=== PATIENT | female | born 1940 | race Caucasian/White ===

== ENCOUNTER 2024-10-03 10:44 | Outpatient (AMB) | payer MEDICARE, SELFPAY ==
--- NOTE | 2024-10-03 10:57 | A.OFFPC_ITS ---
Vital Signs 10/03/24 11:12 Height 5 ft 5 in Weight 180 lb BMI 30.0 BP 144/70 H Blood Pressure Location Rt brachial Position Sitting Respiration 18 Pulse 68 Pulse Source Pulse Oximeter Temp 98.0 F Temp Source Oral Pulse Oximetry (%) 100 Oxygen Delivery Method Room Air Intake Visit Reasons: New patient visit ok per Dr. Suárez Intake Note: Pt is here today for a New patient visit. Allergies No Known Allergies Allergy (Verified 10/03/24 11:13) Tobacco use date assessed: 10/03/24 Fall risk assessment: No Falls in past year Last assessed Fall Risk: 10/03/24 Dental Screening Dental Screen Date: 10/03/24 Did you have a dental visit in the last 12 months?: Yes Did you have a dental problem in the last 6 months where you did not have access to dental care?: No Was dental information given to patient?: Patient has dentist HPI New patient visit ok per Dr. Suárez HPI Details Patient presents for new patient visit. 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 She was seen a month ago in urgent care and diagnosed with pneumonia and treated with 1 week of antibiotic. Patient is feeling better and denies any cough, PND orthopnea shortness or breath. The patient reports intermittent right upper quadrant abdominal pain after eating fried or fatty foods. She reports occasionally nausea but no vomiting change in bowel habits pain at night. [facility] Surgical History Hx of hysterectomy Family History Father Cancer Mother Diabetes Social History Household Members Other:: lives with son, Housing: House Patient Tobacco Use Status: Never used Tobacco e-Cigarette/Vaping Use: Never Used service: No Current occupational status: retired Cognitive needs: No Hearing needs: No Vision needs: Yes Questionnaire PHQ-9 Over the last 2 weeks, how often have you been bothered by any of the following problems? 1. Little interest or pleasure in doing things: not at all 2. Feeling down, depressed, or hopeless: not at all 3. Trouble falling or staying asleep, or sleeping too much: not at all 4. Feeling tired or having little energy: not at all 5. Poor appetite or overeating: not at all 6. Feeling bad about yourself - or that you are a failure or have let yourself or your family down: not at all 7. Trouble concentrating on things, such as reading the newspaper or watching television: not at all 8. Moving or speaking so slowly that other people could have noticed. Or the opposite - being so fidgety or restless that you have been moving around a lot more than usual: not at all 9. Thoughts that you would be better off or of hurting yourself in some way: not at all Total score: 0 Depression Screening Interpretation: Negative Depression Screening Done: Yes 10673 - PHQ-9 Billing: Yes Source: Developed by Drs. Francisco Delgado, Marlyn Wheeler, Alexander Araya and colleagues, with an educational jennifer from [employer]. Thrive Questionnaire Date Thrive assessed: 10/03/24 I am a: Patient What is your living situation today?: I have a steady place to live Within the past 12 months, did the food you bought not last and you didn't have the money to get more?: Never true Within the past 12 months, did you worry whether your food would run out before you got money to buy more?: Never true Do you have trouble paying for medicines?: No Do you have trouble getting transportation to medical appointments?: No Do you have trouble paying your heating and electricity bill?: No Do you have trouble taking care of your child, family member or friend?: No Do you have trouble with day-to-day activities such as bathing, preparing meals, shopping, managing finances, etc.?: No Are you currently unemployed and looking for a job?: No Are you interested in more education?: No Please select the resources that you would like help with: None THRIVE Score: 0 AUDIT C Alcohol Use Questionnaire (AUDIT-C) 1. How often do you have a drink containing alcohol?: Monthly or less 2. How many drinks containing alcohol do you have on a typical day when you are drinking?: 1 or 2 3. How often do you have six or more drinks on one occasion?: Never Total Score: 1 JULIANO-7 AMB Questionnaire JULIANO-7 Date JULIANO - 7 assessed: 10/03/24 Feeling nervous, anxious, or on edge: 0 = Not at all Not being able to stop or control worryin = Not at all Worrying too much about different things: 0 = Not at all Trouble relaxin = Not at all Being so restless that it is hard to sit still: 0 = Not at all Becoming easily annoyed or irritable: 0 = Not at all Feeling afraid as if something awful might happen: 0 = Not at all Total JULIANO-7 score (0-4 normal; 5-9 mild; 10-14 moderate; 15-21 severe): 0 Source: Developed by Drs. Francisco Delgado, Marlyn Wheeler, Alexander Araya and colleagues, with an educational jennifer from [employer]. JULIANO-7 Assessment Billing JULIANO-7 Assessment Tool: JULIANO-7 Assessment 84936 Review of Systems Const All systems reviewed & are unremarkable except as noted in HPI and below Reports no additional complaints Eyes Reports no additional complaints ENT Reports no additional complaints Card Reports no additional complaints Resp Reports no additional complaints GI Reports no additional complaints Reports no additional complaints Physical exam (Primary Care) Vital Signs: Last Vital Signs Temp 98.0 F 10/03/24 11:12 Pulse 68 10/03/24 11:12 Resp 18 10/03/24 11:12 BP 144/70 H 10/03/24 11:12 Pulse Ox 100 10/03/24 11:12 Oxygen Delivery Method Room Air 10/03/24 11:12 BMI result Body Mass Index 30.0 Tobacco/Smoking Status: Tobacco use Status Tobacco use date assessed 10/03/24 10/03/24 11:07 Patient Tobacco Use Status Never used Tobacco 10/03/24 11:27 e-Cigarette/Vaping Use Never Used 10/03/24 11:27 PHQ-9: PHQ-9 Score PHQ-9: Total score 0 10/03/24 11:28 Depression Screening Interpretation: Negative Thrive Assessment: Date of Thrive Assessment Date Thrive assessed 10/03/24 10/03/24 11:21 Const General: no acute distress HENMT Head: Yes normal to inspection Mouth: Normal oral and palatal mucosa present Throat: Yes posterior oropharynx normal Eyes General: appearance normal, both eyes and all related structures Neck Neck: Yes supple Resp Effort & Inspection: normal respiratory effort Auscultation: clear to auscultation bilaterally Cardio Rhythm: regular rhythm Heart sounds: S1 normal heart sound present and S2 normal heart sound present GI Inspection: Yes normal to inspection Palpation (GI): Soft to palpation Percussion: Yes normal to percussion Auscultation: normal bowel sounds Immunizations pneumoc 20-esther conj-dip cr(PF) 0.5 mL IM syringe Performing Provider: Kia Suárez MD Performing Location: [facility] [place] [facility] Administered by: BISMARK Griffin on 10/03/24 11:51 Dose Route Admin Location Dispensed Lot Number Expiration Date NDC [place] [employer] 0.5 mL IM Right Deltoid 0.5 mL [id number] 08/30/25 3729-5079-43 [employer] VIS Given Date VIS Provided VIS Publication Date 10/03/24 Single Vaccine 21 Eligibility Eligibility Date Funding Source Not [facility] Eligible 10/03/24 Private Coding Level of Care Code New Pt Level 4 (20758) Diagnoses Hyperlipidemia E78.5 HTN (hypertension) I10 RUQ abdominal pain R10.11 Cataract H26.9 Additional Codes JULIANO-7 Assessment Billing - JULIANO-7 Assessment Tool: JULIANO-7 Assessment 13052 ([id number]) PHQ-9 - 48301 - PHQ-9 Billing: Yes ([id number]) Assessment & Plan Assessment & Plan (1) Hyperlipidemia: Code(s): E78.5 - Hyperlipidemia, unspecified Category: Medical Plan: Continue statin return for fasting blood work (2) HTN (hypertension): Code(s): I10 - Essential (primary) hypertension Category: Medical Plan: Increase enalapril to 20 mg a day continue atenolol. Patient will return for fasting blood work in 1 week and follow-up in 1 month (3) RUQ abdominal pain: Code(s): R10.11 - Right upper quadrant pain Category: Medical Plan: Obtain abdominal ultrasound to rule out cholelithiasis (4) Cataract: Code(s): H26.9 - Unspecified cataract Category: Medical Plan: Established with Ophthalmology Orders: Orders Comprehensive Met. Panel 1 Week E78.5 - Hyperlipidemia, unspecified, I10 - Essential (primary) hypertension, R10.11 - Right upper quadrant pain Lipid Panel 1 Week E78.5 - Hyperlipidemia, unspecified, I10 - Essential (primary) hypertension, R10.11 - Right upper quadrant pain Hemoglobin A1c 1 Week E78.5 - Hyperlipidemia, unspecified, I10 - Essential (primary) hypertension, R10.11 - Right upper quadrant pain Complete Blood Count Auto Diff 1 Week E78.5 - Hyperlipidemia, unspecified, I10 - Essential (primary) hypertension, R10.11 - Right upper quadrant pain TSH reflex Free T4 1 Week E78.5 - Hyperlipidemia, unspecified, I10 - Essential (primary) hypertension, R10.11 - Right upper quadrant pain Vitamin D 25-OH Total 1 Week E55.9 - Vitamin D deficiency, unspecified Pneumococcal 20 Immunization Today Z23 - Encounter for immunization B Type Natriuretic Peptide 1 Week E78.5 - Hyperlipidemia, unspecified, I10 - Essential (primary) hypertension, R10.11 - Right upper quadrant pain Referrals Ophthalmology Referral H26.9 - Unspecified cataract Medications: New enalapril maleate 20 mg PO DAILY 90 tabs 0RF atorvastatin 20 mg PO DAILY 90 tabs 3RF atenolol 25 mg PO DAILY 90 tabs 3RF
[2024-10-03 11:12] VITALS: BP 144/70; PULSE 68; RESP 18; TEMP 36.7; O2SAT 100
--- OUTSIDE RECORDS SUMMARY | 2024-10-03 11:54 | XMS_ITS | Continuity of Care Document ---
Author Organization [facility] [address] [place] [address] Phone [phone] Care Team Providers Care Global Account Manager Name Role Phone Moe Crow Care Team Information Receive r [phone] Problems Active Problems Provider Date Essential hypertension Darryl Gonzalez M.D. Ons et: 05/24/2022 Sciatica Darryl Gonzalez M.D. Onset: Restless legs Darryl Gonzalez M.D. Onset: Hypercholesterolemia Darryl Gonzalez M.D. Onset : 05/24/2022 Multinodular goiter Darryl Gonzalez M.D. Onset: 05/24/2022 Social History Type Date Description Comments Sex Unknown Lives With Son ETOH Use Occasionally consumes alcoho l Tobacco Use Start: Unknown Patient has never smoked Smoking Status Reviewed: 02/07/23 Patient has never sm oked Allergies and adverse reactions Description No Known Drug Allergies Medications Active Medications SIG Qnty Indications Order ing Provider Date Nvegjuzg68nt Tablets Take 1 Tablet By Mouth Every Day as Directed 90tabs Audrey Felix M.D. 05/24/2022 Estradiol0.1mg/GM Cream Use Vaginally 3 Times Per Week 42.5gm Audrey Felix M.D. 05/24/2022 Ropinirole HCL1mg Tablets Take 1 Tablet By Mouth 3 Hours Before Bedtime rehan Felix M.D. 03/10/2022 Atorvastatin Ovzrnrc21vj Tablets Take 1 Tab By Mouth Daily 90nando Felix M.D. Enalapril Gxtfafo00bc Tablets Take 1 Tablet By Mouth Every Day 90tabs Audrey Felix M.D. Vital Signs Date Vital Result Comment 06/16/2023 10:01am BP Systolic 122 mmHg BP Diastolic 60 mmHg Heart Rate 61 /min Height 63 inches 5'3 Weight 173.12 lb BMI (Body Mass Index) 30.7 kg/m2 Results Test Acquired Date Facility Test Result H/L Range Note Comprehensive Metabolic Panl 06/07/2023 [facility] Glucose 105 mg/dL High (70-99) BUN 17 mg/dL (8-23) Creatinine 0.8 mg/dL (0.5-1.0 ) Sodium 140 mmol/L (133-145 ) Potassium 4.1 mmol/L (3.6-5.2 ) Chloride 104 mmol/L (98-107) Bicarbonate 28 mmol/L (22-29) Anion Gap 8 (4-17) Albumin 4.3 GM/DL (3.4-4.8 ) Calcium 9.4 mg/dL (8.6-10. 5) Bilirubin,Total 1.0 mg/dL (0-1.2 ) Total Protein 6.8 GM/DL (6.2-8.2 ) Ag Ratio 1.7 Ast 18 U/L (0-32) Alk Phos 81 U/L (35-104) Alt 17 U/L (0-33) Estimated GFR Creatinine 75 ML/MIN/1. 73M2 1 Lipid Panel 06/07/2023 [facility] Cholesterol, Total 171 mg/dL (<200) Triglyceride 110 mg/dL (<150) HDL Chol 53 mg/dL (>39) LDL Cholesterol , Calculated 96 mg/dL (0-130) Non HDL Cholesterol (Calc) 118 mg/dL (<160) Complete Abc With Diff 06/07/2023 [facility] WBC 5.9 K/MM3 (4.0-11. 0) RBC 3.96 M/MM3 Low (4.20-5. 40) HGB 11.7 GM/DL (11.7-15 .5) HCT 36.7 % (35.7-45 .8) MCV 92.7 FL (80.0-10 0.0) MCH 29.5 pg (27.0-34 .0) MCHC 31.9 g/dL Low (33.0-37 .0) PLT 232 K/MM3 (150-460 ) RDW-SD 47.1 FL High (<47.0) MPV 10.1 FL (9.4-12. 4) Automated NRBC 0.0 #/100WBC' S Abs. NRBC 0.0 K/MM3 Neut # 3.1 K/MM3 (1.3-7.0 ) Lymph # 2.1 K/MM3 (0.8-3.1 ) [place]# 0.4 K/MM3 (0.4-0.9 ) Eo # 0.3 K/MM3 (0.0-0.4 ) Baso # 0.1 K/MM3 (0.0-0.1 ) Abs. Imm Gran 0.0 K/MM3 Neut 51.8 % (44-76) Lymph 35.9 % (15-43) Monocyte 6.4 % (4.5-10. 5) Eo 4.2 % (0-6) Baso 1.4 % (0-2) Imm Gran 0.3 % Lipid Panel 05/31/2022 [facility] Cholesterol, Total 159 mg/dL (<200) Triglyceride 108 mg/dL (<150) HDL Chol 53 mg/dL (>39) LDL Cholesterol , Calculated 84 mg/dL (0-130) Non HDL Cholesterol (Calc) 106 mg/dL (<160) Lipid Panel 02/02/2022 [facility] Cholesterol, Total 254 mg/dL High (<200) Triglyceride 155 mg/dL High (<150) HDL Chol 49 mg/dL (>39) LDL Cholesterol , Calculated 174 mg/dL High (0-130) Non HDL Cholesterol (Calc) 205 mg/dL High (<160) 1 Creatinine based est imated glomerular filtration (eGFR) in adults is calculated using the [employer] recommended 2020 CKD-EPI equation. Estimates GFR from serum creatinine, age and sex. Medical Devices Description No Information Available Encounters Type Date Location Provider Dx Diagnosis Office Visit 06/16/2023 10:00a Main Office Darryl Gonzalez M.D. G25.81 Restless legs syndrome E78.00 Pure hypercholestero lemia, unspecified I10 Essential (primary) hypertension Assessments Date Code Description Provider 06/16/2023 G25.81 Restless legs syndrome Darryl Gonzalez M.D. 06/16/2023 E78.00 Hypercholesterolemia Darryl keenan M.D. 06/16/2023 I10 Essential hypertension Darryl Gonzalez M.D. Plan of Treatment No Information Available Functional Status Description No Information Available Mental Status Description No Information Available Referrals Refer to Dr Reason for Referral Status Appt Kamron e Rafiq Schwartz MD CATARACTS FOLLOW UP Closed [address] [place] [address] [phone] Rafiq Schwartz MD Closed [address] [place] [address] [phone]
== END 2024-10-03 11:54 | disposition home or self-care (01) ==
LOC: HO.HMCC 10:45
PROVIDERS: Visit Provider Internal Medicine
DX: E78.5 Hyperlipidemia, unspecified (principal); I10 Essential (primary) hypertension; R10.11 Right upper quadrant pain; H26.9 Unspecified cataract; Z23 Encounter for immunization

== ENCOUNTER → 2024-10-03 10:44 | Outpatient (BNVA) | payer MEDICARE, SELFPAY | PROVIDERS: Visit Provider Internal Medicine | DX: I10 Essential (primary) hypertension (principal); E78.5 Hyperlipidemia, unspecified; R10.11 Right upper quadrant pain; H26.9 Unspecified cataract; Z23 Encounter for immunization; Z86.73 Personal history of transient ischemic attack (TIA), and cerebral infarction without residual deficits | CPT/HCPCS: 90471; 90677; 96127; 99202 ==

== ENCOUNTER 2024-10-28 09:42 | Outpatient (REF) | payer MEDICARE, SELFPAY ==
--- OUTSIDE RECORDS SUMMARY | 2024-10-28 10:56 | XMS_ITS | Continuity of Care Document ---
Author Organization [facility] [address] [place] [address] Phone [phone] Care Team Providers Care Advertising Sales Consultant Name Role Phone Moe Crow Care Team Information Receive r [phone] Problems Active Problems Provider Date Essential hypertension [...] SIG Qnty Indications Order ing Provider Date Etkzjfkn56ko Tablets Take 1 Tablet By Mouth Every Day as Directed 90tabs Audrey Felix M.D. 05/24/2022 Estradiol0.1mg/GM Cream Use Vaginally 3 Times Per Week 42.5gm Audrey Felix M.D. 05/24/2022 Ropinirole HCL1mg Tablets Take 1 Tablet By Mouth 3 Hours Before Bedtime rehan Felix M.D. 03/10/2022 Atorvastatin Hqfmmgm26fj Tablets Take 1 Tab By Mouth Daily 90nando Felix M.D. Enalapril Rxcwxon22bh Tablets Take 1 Tablet By Mouth Every Day 90tabs Audrey Felix M.D. Vital Signs Date Vital Result Comment 06/16/2023 10:01am BP Systolic 122 mmHg BP Diastolic 60 mmHg Heart Rate 61 /min Height 63 inches 5'3 Weight 173.12 lb BMI (Body Mass Index) 30.7 kg/m2 Results Test Acquired Date Facility Test Result H/L Range Note Comprehensive Metabolic Panl 06/07/2023 [facility] Glucose 105 mg/dL High (70-99) [...] 75 ML/MIN/1. 73M2 1 Lipid Panel 06/07/2023 [facility] Cholesterol, Total 171 mg/dL (<200) Triglyceride 110 mg/dL (<150) HDL Chol 53 mg/dL (>39) LDL Cholesterol , Calculated 96 mg/dL (0-130) Non HDL Cholesterol (Calc) 118 mg/dL (<160) Complete Abc With Diff 06/07/2023 [facility] WBC 5.9 K/MM3 (4.0-11. 0) [...] ) Lymph # 2.1 K/MM3 (0.8-3.1 ) [place]# 0.4 K/MM3 (0.4-0.9 ) Eo # 0.3 K/MM3 (0.0-0.4 ) Baso # 0.1 K/MM3 (0.0-0.1 ) Abs. Imm Gran 0.0 K/MM3 Neut 51.8 % (44-76) Lymph 35.9 % (15-43) Monocyte 6.4 % (4.5-10. 5) Eo 4.2 % (0-6) Baso 1.4 % (0-2) Imm Gran 0.3 % Lipid Panel 05/31/2022 [facility] Cholesterol, Total 159 mg/dL (<200) Triglyceride 108 mg/dL (<150) HDL Chol 53 mg/dL (>39) LDL Cholesterol , Calculated 84 mg/dL (0-130) Non HDL Cholesterol (Calc) 106 mg/dL (<160) Lipid Panel 02/02/2022 [facility] Cholesterol, Total 254 mg/dL High [...] UP Closed [address] [place] [address] [phone] Rafiq Schwartz MD Closed [address] [place] [address] [phone]
[2024-10-28 13:03] LABS: MANUAL DIFF FLAG NO
[2024-10-28 13:23] LABS: Basophils Absolute Auto 0.1 X10*3/uL (0.0-0.2); Basophils Percent Auto 1.1 % (0-2); Eosinophils Absolute Auto 0.3 X10*3/uL (0.0-0.4); Eosinophils Percent Auto 4.1 % (0-4); Hematocrit 34.5 % (37.0-47.0); Hemoglobin 11.3 g/dl (12.0-16.0); Imm Gran Abs Auto 0.03 X10*3/uL (0.00-0.03); Imm Gran Pct Auto 0.4 % (0.0-0.4); Lymphocytes Absolute Auto 2.2 X10*3/uL (1.2-4.9); Lymphocytes Percent Auto 31.4 % (20-40); Mean Corpuscular HGB Conc 32.8 g/dl (31.0-35.0); Mean Corpuscular Hemoglobin 30.1 pg (27.0-33.0); Mean Platelet Volume 10.4 fL (9.4-12.3); Monocytes Absolute Auto 0.4 X10*3/uL (0.1-1.2); Platelet Count 209 X10*3/uL (160-400); Red Blood Count 3.75 X10*6/uL (4.20-5.50); Red Cell Distribution Width 14.3 % (11.0-16.0)
[2024-10-28 13:24] LABS: B Type Natriuretic Peptide 79 pg/mL (<100)
[2024-10-28 13:32] LABS: Estimated Average Glucose 117 mg/dL; Hemoglobin A1C 114.9123 umol/L; Hemoglobin A1c % 5.7 % (<6.0); Total Hemoglobin (HGBA1C) 2995.5444 umol/L
[2024-10-28 13:38] LABS: Alanine Aminotransferase 22 U/L (0-31); Albumin Level 3.9 g/dL (3.5-5.0); Alkaline Phosphatase 73 U/L (39-117); Anion Gap 10 (12-20); Aspartate Amino Transferase 27 U/L (5-31); Blood Urea Nitrogen 18 mg/dL (9-16); Calcium 9.1 mg/dL (8.4-10.2); Carbon Dioxide 28 mmol/L (22-29); Chloride 107 mmol/L (96-108); Cholesterol 148 mg/dL (<200); Estimated Glomerular Filt Rate > 60; Glucose Random 98 mg/dL (60-115); HDL Cholesterol 49 mg/dL (>40); LDL Cholesterol Calculated 79 mg/dL (<100); Potassium 4.6 mmol/L (3.3-5.1); Sodium 140 mmol/L (135-145); Total Protein 6.9 g/dL (6.5-8.0); Triglycerides 102 mg/dL (<150)
[2024-10-28 13:45] LABS: Vitamin D 25-OH Total 32.8 ng/mL (>30)
== END 2024-10-28 09:43 | disposition home or self-care (01) ==
LOC: HO.HMGCLDS 09:42
PROVIDERS: PCP Internal Medicine; Visit Provider Internal Medicine
DX: E78.5 Hyperlipidemia, unspecified (principal); I10 Essential (primary) hypertension; R10.11 Right upper quadrant pain; E55.9 Vitamin D deficiency, unspecified
CPT/HCPCS: 36415; 80053; 80061; 82306; 83036; 83880; 84443; 85025

== ENCOUNTER 2024-11-04 09:51 | Outpatient (AMB) | payer MEDICARE, SELFPAY ==
[2024-11-04 10:13] VITALS: BP 126/76; PULSE 65; RESP 18; O2SAT 97; BMI 29.6
--- NOTE | 2024-11-04 10:13 | A.OFFPC_ITS ---
Vital Signs 11/04/24 10:13 Height 5 ft 5 in Weight 178 lb BMI 29.6 BP 126/76 Blood Pressure Location Lt brachial Position Sitting Respiration 18 Pulse 65 Pulse Source Pulse Oximeter Pulse Oximetry (%) 97 Oxygen Delivery Method Room Air Intake Visit Reasons: 1m follow up Intake Note: Pt is here today for 1 month follow up visit. Allergies No Known Allergies Allergy (Verified 11/04/24 10:15) Medication List - Last Reconciled 11/04/24 by Kia Suárez MD atenolol 25 mg PO DAILY atorvastatin 20 mg PO DAILY enalapril maleate 10 mg PO DAILY enalapril maleate 20 mg PO DAILY multivitamin 1 tab PO DAILY omega-3 fatty acids (Fish Oil) PO ropinirole 1 mg PO BEDTIME Tobacco use date assessed: 11/04/24 Fall risk assessment: No Falls in past year Last assessed Fall Risk: 11/04/24 Dental Screening Dental Screen Date: 10/03/24 HPI 1m follow up HPI Details Patient presents for the follow-up on hypertension hyperlipidemia stable on current medications PFSH Medical History (Updated 11/04/24 @ 15:48 by Kia Suárez MD) RUQ abdominal pain HTN (hypertension) Hyperlipidemia Vitamin D deficiency Anemia Surgical History Hx of hysterectomy Family History Father Cancer Mother Diabetes Social History Household Members Other:: lives with son, Housing: House Patient Tobacco Use Status: Never used Tobacco e-Cigarette/Vaping Use: Never Used service: No Current occupational status: retired Cognitive needs: No Hearing needs: No Vision needs: Yes Questionnaire Thrive Questionnaire Date Thrive assessed: 10/03/24 JULIANO-7 AMB Questionnaire JULIANO-7 Date JULIANO - 7 assessed: 10/03/24 Source: Developed by Drs. Francisco Delgado, Marlyn Wheeler, Alexander Araya and colleagues, with an educational jennifer from [employer]. Review of Systems Const All systems reviewed & are unremarkable except as noted in HPI and below Card Reports no additional complaints Resp Reports no additional complaints GI Reports no additional complaints Reports no additional complaints Physical exam (Primary Care) Vital Signs: Last Vital Signs Pulse 65 11/04/24 10:13 Resp 18 11/04/24 10:13 BP 126/76 11/04/24 10:13 Pulse Ox 97 11/04/24 10:13 Oxygen Delivery Method Room Air 11/04/24 10:13 BMI result Body Mass Index 29.6 Tobacco/Smoking Status: Tobacco use Status Tobacco use date assessed 11/04/24 11/04/24 10:16 Patient Tobacco Use Status Never used Tobacco 11/04/24 10:16 e-Cigarette/Vaping Use Never Used 11/04/24 10:16 Thrive Assessment: Date of Thrive Assessment Date Thrive assessed 10/03/24 11/04/24 10:16 Const General: no acute distress HENMT Face and sinus: Yes normal facial exam Resp Effort & Inspection: normal respiratory effort Auscultation: clear to auscultation bilaterally Cardio Rhythm: regular rhythm Heart sounds: S1 normal heart sound present and S2 normal heart sound present GI Inspection: Yes normal to inspection Palpation (GI): Soft to palpation Percussion: Yes normal to percussion Auscultation: normal bowel sounds Coding Level of Care Code Est Pt Level 4 (79192) Diagnoses RUQ abdominal pain R10.11 Anemia D64.9 Hyperlipidemia E78.5 HTN (hypertension) I10 Assessment & Plan Assessment & Plan (1) RUQ abdominal pain: Comment: Chronic right upper quadrant pain obtain abdominal ultrasound to rule out cholelithiasis Code(s): R10.11 - Right upper quadrant pain Category: Medical Plan: Obtain abdominal ultrasound to rule out gallstones (2) Anemia: Comment: Check iron studies and B12 Code(s): D64.9 - Anemia, unspecified Category: Medical Plan: Check iron level and B12 (3) Hyperlipidemia: Code(s): E78.5 - Hyperlipidemia, unspecified Category: Medical Plan: Continue statin (4) HTN (hypertension): Code(s): I10 - Essential (primary) hypertension Category: Medical Plan: Continue current medications follow-up in 3 months Orders: Orders US abdomen complete Today R10.11 - Right upper quadrant pain Vitamin B12 and Folate Today D64.9 - Anemia, unspecified IRON PROFILE Today D64.9 - Anemia, unspecified Medications: Refilled enalapril maleate 20 mg PO DAILY 90 tabs 3RF
--- OUTSIDE RECORDS SUMMARY | 2024-11-04 10:59 | XMS_ITS | Continuity of Care Document ---
Author Organization [facility] [address] [place] [address] Phone [phone] Care Team Providers Care Clearance Diver Name Role Phone Moe Crow Care Team Information Receive r [phone] Problems Active Problems Provider Date Essential hypertension [...] SIG Qnty Indications Order ing Provider Date Ixgvojdq33st Tablets Take 1 Tablet By Mouth Every Day as Directed 90tabs Audrey Felix M.D. 05/24/2022 Estradiol0.1mg/GM Cream Use Vaginally 3 Times Per Week 42.5gm Audrey Felix M.D. 05/24/2022 Ropinirole HCL1mg Tablets Take 1 Tablet By Mouth 3 Hours Before Bedtime rehan Felix M.D. 03/10/2022 Atorvastatin Somacbj83un Tablets Take 1 Tab By Mouth Daily 90nando Felix M.D. Enalapril Dhczehm26zq Tablets Take 1 Tablet By Mouth Every Day 90tabs Audrey Felix M.D. Vital Signs Date Vital Result Comment 06/16/2023 10:01am BP Systolic 122 mmHg BP Diastolic 60 mmHg Heart Rate 61 /min Height 63 inches 5'3 Weight 173.12 lb BMI (Body Mass Index) 30.7 kg/m2 Results Test Acquired Date Facility Test Result H/L Range Note Comprehensive Metabolic Panl 06/07/2023 [facility] Glucose 105 mg/dL High [...] 75 ML/MIN/1. 73M2 1 Lipid Panel 06/07/2023 [facility] Cholesterol, Total 171 mg/dL (<200) Triglyceride 110 mg/dL (<150) HDL Chol 53 mg/dL (>39) LDL Cholesterol , Calculated 96 mg/dL (0-130) Non HDL Cholesterol (Calc) 118 mg/dL (<160) Complete Abc With Diff 06/07/2023 [facility] WBC 5.9 K/MM3 (4.0-11. [...] ) Lymph # 2.1 K/MM3 (0.8-3.1 ) [place]# 0.4 K/MM3 (0.4-0.9 ) Eo # 0.3 K/MM3 (0.0-0.4 ) Baso # 0.1 K/MM3 (0.0-0.1 ) Abs. Imm Gran 0.0 K/MM3 Neut 51.8 % (44-76) Lymph 35.9 % (15-43) Monocyte 6.4 % (4.5-10. 5) Eo 4.2 % (0-6) Baso 1.4 % (0-2) Imm Gran 0.3 % Lipid Panel 05/31/2022 [facility] Cholesterol, Total 159 mg/dL (<200) Triglyceride 108 mg/dL (<150) HDL Chol 53 mg/dL (>39) LDL Cholesterol , Calculated 84 mg/dL (0-130) Non HDL Cholesterol (Calc) 106 mg/dL (<160) Lipid Panel 02/02/2022 [facility] Cholesterol, Total 254 mg/dL [...] UP Closed [address] [place] [address] [phone] Rafiq Schwartz MD Closed [address] [place] [address] [phone]
== END 2024-11-04 11:12 | disposition home or self-care (01) ==
LOC: HO.HMCC 09:52
PROVIDERS: Visit Provider Internal Medicine
DX: R10.11 Right upper quadrant pain (principal); D64.9 Anemia, unspecified; E78.5 Hyperlipidemia, unspecified; I10 Essential (primary) hypertension

== ENCOUNTER 2024-11-04 09:51 | Outpatient (REF) | payer MEDICARE, SELFPAY ==
[2024-11-04 13:41] LABS: Iron 95 mcg/dL (30-160); Percent Iron Saturation 40 % (15-50); Total Iron Binding Capacity 239 mcg/dL (228-428); Unsaturated Iron Binding 144 ug/dL
[2024-11-04 14:15] LABS: Folate 9.6 ng/mL (> or = 4.0); Vitamin B12 593 pg/mL (200-900)
== END 2024-11-04 09:52 | disposition home or self-care (01) ==
LOC: HO.HMGCLDS 09:51
PROVIDERS: PCP Internal Medicine; Visit Provider Internal Medicine
DX: R10.11 Right upper quadrant pain (principal); D64.9 Anemia, unspecified; E78.5 Hyperlipidemia, unspecified; I10 Essential (primary) hypertension
CPT/HCPCS: 36415; 82607; 82746; 83540; 99212

== ENCOUNTER 2024-12-06 09:41 | Outpatient (REF) | payer MEDICARE, SELFPAY ==
--- NOTE | ~2024-12-06 | US_ITS ---
CLINICAL HISTORY: R10.11 - Right upper quadrant pain --- Additional Notes or Special Instructions: ch olecystectomy US ABDOMEN LIMITED Comparison: None Findings: Visualized portions of the pancreas are unremarkable. Visualized IVC is normal caliber. The liver is diffusely echogenic. The right hepatic lobe measures 15.0 cm. There is no intrahepatic bile duct dilatation. The common bile duct measures 2.3 mm. The gallbladder is normal. There is no sonographic Valencia sign. The main portal vein is antegrade. Right kidney length is 9.9 cm. No hydronephrosis. No ascites. IMPRESSION: 1. No cholelithiasis or acute cholecystitis. 2. No significant biliary ductal dilatation. 3. Hepatic steatosis. 4. No right hydronephrosis or sonographic evidence for nephrolithiasis. This document has been electronically signed by: Adeline Briones DO on 12/06/2024 15:28:26
--- OUTSIDE RECORDS SUMMARY | 2024-12-06 10:17 | XMS_ITS | Continuity of Care Document ---
Author Organization [facility] [address] [place] [address] Phone [phone] Care Team Providers Care Business Sales Consultant Name Role Phone Moe Crow Care Team Information Receive r [phone] Problems Active Problems Provider Date Essential hypertension [...] SIG Qnty Indications Order ing Provider Date Erxuhurq95ho Tablets Take 1 Tablet By Mouth Every Day as Directed 90tabs Audrey Felix M.D. 05/24/2022 Estradiol0.1mg/GM Cream Use Vaginally 3 Times Per Week 42.5gm Audrey Felix M.D. 05/24/2022 Ropinirole HCL1mg Tablets Take 1 Tablet By Mouth 3 Hours Before Bedtime rehan Felix M.D. 03/10/2022 Atorvastatin Thhdfwg81ck Tablets Take 1 Tab By Mouth Daily 90nando Felix M.D. Enalapril Zvslped50zy Tablets Take 1 Tablet By Mouth Every Day 90tabs Audrey Felix M.D. Vital Signs Date Vital Result Comment 06/16/2023 10:01am BP Systolic 122 mmHg BP Diastolic 60 mmHg Heart Rate 61 /min Height 63 inches 5'3 Weight 173.12 lb BMI (Body Mass Index) 30.7 kg/m2 Results Test Acquired Date Facility Test Result H/L Range Note Comprehensive Metabolic Panl 06/07/2023 [facility] Glucose 105 mg/dL High (70-99) [...] 75 ML/MIN/1. 73M2 1 Lipid Panel 06/07/2023 [facility] Cholesterol, Total 171 mg/dL (<200) Triglyceride 110 mg/dL (<150) HDL Chol 53 mg/dL (>39) LDL Cholesterol , Calculated 96 mg/dL (0-130) Non HDL Cholesterol (Calc) 118 mg/dL (<160) Complete Abc With Diff 06/07/2023 [facility] Lab WBC 5.9 K/MM3 (4.0-11. 0) [...] ) Lymph # 2.1 K/MM3 (0.8-3.1 ) Owen# 0.4 K/MM3 (0.4-0.9 ) Eo # 0.3 K/MM3 (0.0-0.4 ) Baso # 0.1 K/MM3 (0.0-0.1 ) Abs. Imm Gran 0.0 K/MM3 Neut 51.8 % (44-76) Lymph 35.9 % (15-43) Monocyte 6.4 % (4.5-10. 5) Eo 4.2 % (0-6) Baso 1.4 % (0-2) Imm Gran 0.3 % Lipid Panel 05/31/2022 [facility] Cholesterol, Total 159 mg/dL (<200) Triglyceride 108 mg/dL (<150) HDL Chol 53 mg/dL (>39) LDL Cholesterol , Calculated 84 mg/dL (0-130) Non HDL Cholesterol (Calc) 106 mg/dL (<160) Lipid Panel 02/02/2022 [facility] Reference Lab Cholesterol, Total 254 mg/dL High [...] UP Closed [address] [place] [address] [phone] Rafiq Schwartz MD Closed [address] [place] [address] [phone]
== END 2024-12-06 09:42 | disposition home or self-care (01) ==
LOC: HO.HMGCX 09:41
PROVIDERS: PCP Internal Medicine; Visit Provider Internal Medicine
DX: R10.11 Right upper quadrant pain (principal); Z90.49 Acquired absence of other specified parts of digestive tract
CPT/HCPCS: 76705

== ENCOUNTER → 2024-12-06 09:44 | Outpatient (BNV) | payer MEDICARE, SELFPAY | PROVIDERS: PCP Internal Medicine; Visit Provider Radiology Diagnostic Radiology | DX: K76.0 Fatty (change of) liver, not elsewhere classified (principal) | CPT/HCPCS: 76705 ==

== ENCOUNTER 2025-01-30 09:38 | Outpatient (AMB) | payer MEDICARE, SELFPAY ==
[2025-01-30 09:54] VITALS: BP 142/60; PULSE 70; TEMP 36.8; O2SAT 97; BMI 29.7
--- NOTE | 2025-01-30 09:54 | MHC.OFFWIV ---
Intake Vital Signs 01/30/25 09:54 Height 5 ft 5 in Weight 178 lb 4 oz BMI 29.7 BP 142/60 H Blood Pressure Location Rt brachial Position Sitting Pulse 70 Pulse Source Pulse Oximeter Temp 98.2 F Temp Source Oral Pulse Oximetry (%) 97 Oxygen Delivery Method Room Air Intake Visit Reasons: EP-lt leg issue/b/l ears clean Patient Tobacco Use Status: Never used Tobacco Truss Assembler Required: No Is last menstrual period known: No Post menopausal: Yes Patient : No Allergies No Known Allergies Allergy (Verified 11/04/24 10:15) Do you need a note to return to daycare/school/sports/work: No HPI HPI Comments History of Present Illness Details History - The patient is an 84-year-old female presenting with her son as her park interpreter for an evaluation and management of leg abrasion. - The leg abrasion occurred approximately one month ago when the patient scraped her leg against a car door. - The patient's brother, a nurse, has been managing the wound care, and there is a suggestion for antibiotic use to promote healing. - There is no evidence of infection or cellulitis, and the patient is not diabetic. - She denies pain, redness, warmth, discharge, induration or bleeding. Rash - The patient also reports dry, skin with a rash on the feet, which is itchy. - She has no fever or chills. - She has no new foods, lotions, soaps, detergents, medications, or exposures. cerumen impaction - Son also wants her ears flushed today - She was seen by her PCP and told that she has cerumen impaction. - She has a f/u with the ENT. - She has no ear pain. Physical Exam General: Cooperative, healthy appearing, comfortable, no acute distress and well developed Orientation: Patient oriented x3 Limitations: No limitations Mouth: normal, moist oral mucosa Neck: Normal visual inspection and Yes full ROM Respiratory: Normal respiratory effort and able to speak in complete sentences. Clear to auscultation bilaterally. No w/r/r noted. Cardiovascular: RRR, no m/r/g noted. Normal S1 and S2. No m/r/r noted. Skin: Dry, hyperpigmented rash noted on the feet bilaterally. Some scattered patches noted on the lower legs. Wound noted on the left lower leg, healing. No surrounding erythema. No discharge or induration noted. No warmth or streaking noted. Patient was informed and verbally consented to the use of an ambient scribe for clinic note documentation during this visit FORMERLY [facility], [facility] Medical History (Updated 11/04/24 @ 15:48 by Kia Suárez MD) RUQ abdominal pain HTN (hypertension) Hyperlipidemia Vitamin D deficiency Anemia Surgical History Hx of hysterectomy Family History Father Cancer Mother Diabetes Social History Household Members Other:: lives with son, Housing: House Patient Tobacco Use Status: Never used Tobacco e-Cigarette/Vaping Use: Never Used Patient : No service: No Current occupational status: retired Cognitive needs: No Hearing needs: No Vision needs: Yes Review of Systems Const All systems reviewed & are unremarkable except as noted in HPI and below Physical Exam Vital Signs: Last Vital Signs Temp 98.2 F 01/30/25 09:54 Pulse 70 01/30/25 09:54 BP 142/60 H 01/30/25 09:54 Pulse Ox 97 01/30/25 09:54 Oxygen Delivery Method Room Air 01/30/25 09:54 BMI result Body Mass Index 29.7 Assessment & Plan Assessment & Plan (1) Wound of left leg: Code(s): S81.802A - Unspecified open wound, left lower leg, initial encounter Qualifiers: Encounter type: initial encounter Qualified Code(s): S81.802A - Unspecified open wound, left lower leg, initial encounter Plan: 1. Leg Abrasion - Continue wound care as advised by the patient's brother, who is a nurse. - Prescribe topical antibiotic ointment to be applied three times daily to promote healing. (2) Rash: Code(s): R21 - Rash and other nonspecific skin eruption Plan: Most likely keratitis vs eczema Plan - hydrocortisone cream to the rash on the feet (3) Impacted cerumen of both ears: Code(s): H61.23 - Impacted cerumen, bilateral Plan: Most likely cerumen impaction Plan - will have her ears irrigated in the office today - she has follow up with ENT Medications: New hydrocortisone 2.5% 1 appl topical BID PRN 30 grams 0RF Skin Irritation mupirocin 2% 1 appl topical TID 22 grams 0RF 7 days Coding Level of Care Code Est Pt Level 4 (58545) Diagnoses Wound of left lower extremity, initial encounter S81.802A Encounter type: initial encounter Rash R21 Impacted cerumen of both ears H61.23
--- OUTSIDE RECORDS SUMMARY | 2025-01-30 10:01 | XMS_ITS | Continuity of Care Document ---
Author Organization [facility] [address] [place] [address] Phone [phone] Care Team Providers Care Caustic Pump Operator Name Role Phone Moe Crow Care Team Information Receive r [phone] Problems Active Problems Provider Date Essential hypertension Darryl Gonzalez M.D. Ons et: 05/24/2022 Sciatica Darryl Gonzalez M.D. Onset: Restless legs Darryl Gonzalez M.D. Onset: Hypercholesterolemia Darryl Gonzalez M.D. Onset : 05/24/2022 Multinodular goiter Darryl Gonzalez M.D. Onset: 05/24/2022 Social History Type Date Description Comments Sex Female Sex Unknown Lives With Son ETOH Use Occasionally consumes alcoho l Tobacco Use Start: Unknown Patient has never smoked Smoking Status Reviewed: 02/07/23 Patient has never sm oked Allergies and adverse reactions Description No Known Drug Allergies Medications Active Medications SIG Qnty Indications Order ing Provider Date Qpapjoye67tp Tablets Take 1 Tablet By Mouth Every Day as Directed 90tabs Audrey Felix M.D. 05/24/2022 Estradiol0.1mg/GM Cream Use Vaginally 3 Times Per Week 42.5gm Audrey Felix M.D. 05/24/2022 Ropinirole HCL1mg Tablets Take 1 Tablet By Mouth 3 Hours Before Bedtime 90takimi Felix M.D. 03/10/2022 Atorvastatin Rpyfyrx90hc Tablets Take 1 Tab By Mouth Daily 90tabs Audrey Felix M.D. Enalapril Aowlbfh26hp Tablets Take 1 Tablet By Mouth Every Day 90tabs Audrey Felix M.D. Vital Signs Date Vital Result Comment 06/16/2023 10:01am BP Systolic 122 mmHg BP Diastolic 60 mmHg Heart Rate 61 /min Height 63 inches 5'3 Weight 173.12 lb BMI (Body Mass Index) 30.7 kg/m2 Results Test Acquired Date Facility Test Result H/L Range Note Comprehensive Metabolic Panl 06/07/2023 [facility] Reference Lab Glucose 105 mg/dL High [...] 75 ML/MIN/1. 73M2 1 Lipid Panel 06/07/2023 [facility] Lab Cholesterol, Total 171 mg/dL (<200) Triglyceride 110 mg/dL (<150) HDL Chol 53 mg/dL (>39) LDL Cholesterol , Calculated 96 mg/dL (0-130) Non HDL Cholesterol (Calc) 118 mg/dL (<160) Complete Abc With Diff 06/07/2023 [facility] Reference Lab WBC 5.9 K/MM3 (4.0-11. [...] ) Lymph # 2.1 K/MM3 (0.8-3.1 ) [place]# 0.4 K/MM3 (0.4-0.9 ) Eo # 0.3 K/MM3 (0.0-0.4 ) Baso # 0.1 K/MM3 (0.0-0.1 ) Abs. Imm Gran 0.0 K/MM3 Neut 51.8 % (44-76) Lymph 35.9 % (15-43) Monocyte 6.4 % (4.5-10. 5) Eo 4.2 % (0-6) Baso 1.4 % (0-2) Imm Gran 0.3 % Lipid Panel 05/31/2022 [facility] Cholesterol, Total 159 mg/dL (<200) Triglyceride 108 mg/dL (<150) HDL Chol 53 mg/dL (>39) LDL Cholesterol , Calculated 84 mg/dL (0-130) Non HDL Cholesterol (Calc) 106 mg/dL (<160) Lipid Panel 02/02/2022 [facility] Reference Lab Cholesterol, Total 254 mg/dL [...] UP Closed [address] [place] [address] [phone] Rafiq Schwartz MD Closed [address] [place] [address] [phone]
== END 2025-01-30 11:06 | disposition home or self-care (01) ==
PROVIDERS: PCP Internal Medicine; Visit Provider Physician Assistant Medical
DX: S81.802A Unspecified open wound, left lower leg, initial encounter (principal); R21 Rash and other nonspecific skin eruption; H61.23 Impacted cerumen, bilateral

== ENCOUNTER → 2025-01-30 09:38 | Outpatient (BNVA) | payer MEDICARE, SELFPAY | PROVIDERS: PCP Internal Medicine; Visit Provider Physician Assistant Medical | DX: H61.23 Impacted cerumen, bilateral (principal); R21 Rash and other nonspecific skin eruption; S81.802A Unspecified open wound, left lower leg, initial encounter; X58.XXXA Exposure to other specified factors, initial encounter; Y93.9 Activity, unspecified; Y92.9 Unspecified place or not applicable; Y99.9 Unspecified external cause status | CPT/HCPCS: 69209; 99212 ==

== ENCOUNTER 2025-02-27 09:49 | Outpatient (AMB) | payer MEDICARE, SELFPAY ==
[2025-02-27 09:53] VITALS: BP 134/66; PULSE 61; RESP 20; TEMP 36.7; O2SAT 97; BMI 29.6
--- NOTE | 2025-02-27 09:53 | MHC.PC.OV ---
Vital Signs 02/27/25 09:53 Height 5 ft 5 in Weight 178 lb BMI 29.6 BP 134/66 Blood Pressure Location Lt brachial Position Sitting Respiration 20 Pulse 61 Pulse Source Pulse Oximeter Temp 98.0 F Temp Source Oral Pulse Oximetry (%) 97 Oxygen Delivery Method Room Air Intake Visit Reasons: 3 months follow up Intake Note: Pt is here today for 3 months follow up visit. Allergies No Known Allergies Allergy (Verified 02/27/25 09:53) Tobacco use date assessed: 02/27/25 Fall risk assessment: No Falls in past year Last assessed Fall Risk: 02/27/25 Dental Screening Dental Screen Date: 02/27/25 HPI 3 months follow up HPI Details Patient presents for the follow-up on hypertension hyperlipidemia chronic lower extremity edema restless leg syndrome, PFSH Medical History RUQ abdominal pain HTN (hypertension) Hyperlipidemia Vitamin D deficiency Anemia Surgical History Hx of hysterectomy Family History Father Cancer Mother Diabetes Social History Household Members Other:: lives with son, Housing: House Patient Tobacco Use Status: Never used Tobacco e-Cigarette/Vaping Use: Never Used service: No Current occupational status: retired Cognitive needs: No Hearing needs: No Vision needs: Yes Questionnaire PHQ-9 Over the last 2 weeks, how often have you been bothered by any of the following problems? 1. Little interest or pleasure in doing things: not at all 2. Feeling down, depressed, or hopeless: not at all 3. Trouble falling or staying asleep, or sleeping too much: not at all 4. Feeling tired or having little energy: not at all 5. Poor appetite or overeating: not at all 6. Feeling bad about yourself - or that you are a failure or have let yourself or your family down: not at all 7. Trouble concentrating on things, such as reading the newspaper or watching television: not at all 8. Moving or speaking so slowly that other people could have noticed. Or the opposite - being so fidgety or restless that you have been moving around a lot more than usual: not at all 9. Thoughts that you would be better off or of hurting yourself in some way: not at all Total score: 0 Depression Screening Interpretation: Negative Depression Screening Done: Yes 15558 - PHQ-9 Billing: Yes Source: Developed by Drs. Francisco Delgado, Marlyn Wheeler, Alexander Araya and colleagues, with an educational jennifer from [employer]. Thrive Questionnaire Date Thrive assessed: 02/27/25 I am a: Parent/Caregiver What is your living situation today?: I have a steady place to live Within the past 12 months, did the food you bought not last and you didn't have the money to get more?: Never true Within the past 12 months, did you worry whether your food would run out before you got money to buy more?: Never true Do you have trouble paying for medicines?: No Do you have trouble getting transportation to medical appointments?: No Do you have trouble paying your heating and electricity bill?: No Do you have trouble taking care of your child, family member or friend?: No Do you have trouble with day-to-day activities such as bathing, preparing meals, shopping, managing finances, etc.?: No Are you currently unemployed and looking for a job?: No Are you interested in more education?: No Please select the resources that you would like help with: None Currently or been in a relationship where the following occur: No concerns reported THRIVE Score: 0 AUDIT C Alcohol Use Questionnaire (AUDIT-C) 1. How often do you have a drink containing alcohol?: Never 3. How often do you have six or more drinks on one occasion?: Never Total Score: 0 JULIANO-7 AMB Questionnaire JULIANO-7 Date JULIANO - 7 assessed: 02/27/25 Feeling nervous, anxious, or on edge: 0 = Not at all Not being able to stop or control worryin = Not at all Worrying too much about different things: 0 = Not at all Trouble relaxin = Not at all Being so restless that it is hard to sit still: 0 = Not at all Becoming easily annoyed or irritable: 0 = Not at all Feeling afraid as if something awful might happen: 0 = Not at all Total JULIANO-7 score (0-4 normal; 5-9 mild; 10-14 moderate; 15-21 severe): 0 Source: Developed by Drs. Francisco Delgado, Marlyn Wheeler, Alexander Araya and colleagues, with an educational jennifer from [employer]. JULIANO-7 Assessment Billing JULIANO-7 Assessment Tool: JULIANO-7 Assessment 06024 Review of Systems Const All systems reviewed & are unremarkable except as noted in HPI and below Eyes Reports no additional complaints ENT Reports no additional complaints Card Reports no additional complaints Resp Reports no additional complaints Reports no additional complaints Physical exam (Primary Care) Vital Signs: Last Vital Signs Temp 98.0 F 02/27/25 09:53 Pulse 61 02/27/25 09:53 Resp 20 02/27/25 09:53 BP 134/66 02/27/25 09:53 Pulse Ox 97 02/27/25 09:53 Oxygen Delivery Method Room Air 02/27/25 09:53 BMI result Body Mass Index 29.6 Tobacco/Smoking Status: Tobacco use Status Tobacco use date assessed 02/27/25 02/27/25 09:54 Patient Tobacco Use Status Never used Tobacco 02/27/25 09:54 e-Cigarette/Vaping Use Never Used 02/27/25 09:54 PHQ-9: PHQ-9 Score PHQ-9: Total score 0 02/27/25 09:54 Depression Screening Interpretation: Negative Thrive Assessment: Date of Thrive Assessment Date Thrive assessed 02/27/25 02/27/25 09:54 Currently or been in a relationship where the following occur: No concerns reported Const General: no acute distress [facility] Head: Yes normal to inspection Eyes General: appearance normal, both eyes and all related structures Neck Neck: Yes no lymphadenopathy and Yes supple Resp Effort & Inspection: normal respiratory effort Auscultation: clear to auscultation bilaterally Cardio Rhythm: regular rhythm Heart sounds: S1 normal heart sound present and S2 normal heart sound present GI Inspection: Yes normal to inspection Palpation (GI): Soft to palpation Percussion: Yes normal to percussion Auscultation: normal bowel sounds Extrem Other: 3+ pitting edema of both lower extremities chronic venous stasis, no ulcers Coding Level of Care Code Est Pt Level 4 (37982) Diagnoses HTN (hypertension) I10 Hyperlipidemia E78.5 Vitamin D deficiency E55.9 Edema R60.9 Venous stasis of both lower extremities I87.8 Additional Codes JULIANO-7 Assessment Billing - JULIANO-7 Assessment Tool: JULIANO-7 Assessment 46545 ([id number]) PHQ-9 - 36837 - PHQ-9 Billing: Yes ([id number]) Assessment & Plan Assessment & Plan (1) HTN (hypertension): Code(s): I10 - Essential (primary) hypertension Category: Medical Plan: cont meds (2) Hyperlipidemia: Code(s): E78.5 - Hyperlipidemia, unspecified Category: Medical Plan: cont statin (3) Vitamin D deficiency: Code(s): E55.9 - Vitamin D deficiency, unspecified Category: Medical Plan: cont vit D (4) Edema: Code(s): R60.9 - Edema, unspecified Category: Medical Plan: For chronic lower extremities edema patient will try furosemide 20 mg every other day, elevate lower extremities and compression knee-highs were recommended (5) Venous stasis of both lower extremities: Code(s): I87.8 - Other specified disorders of veins Category: Medical Plan: as above Orders: Orders Complete Blood Count Auto Diff 6 Months E55.9 - Vitamin D deficiency, unspecified, E78.5 - Hyperlipidemia, unspecified, I10 - Essential (primary) hypertension Vitamin D 25-OH Total 6 Months E55.9 - Vitamin D deficiency, unspecified, E78.5 - Hyperlipidemia, unspecified, I10 - Essential (primary) hypertension Comprehensive Met. Panel 6 Months E55.9 - Vitamin D deficiency, unspecified, E78.5 - Hyperlipidemia, unspecified, I10 - Essential (primary) hypertension Medications: New furosemide (Lasix) 20 mg PO Q OTHER DAY 30 tabs 2RF estradiol 0.01%(0.1mg/gram) 1 g vaginal 3XW 42.5 grams 4RF
--- OUTSIDE RECORDS SUMMARY | 2025-02-27 10:59 | XMS_ITS | Continuity of Care Document ---
Author Organization [facility] [address] [place] [address] Phone [phone] Care Team Providers Care Agriscience Instructor Name Role Phone Moe Crow Care Team Information Receive r [phone] Problems Active Problems Provider Date Essential hypertension [...] Use Start: Unknown Patient has never smoked Allergies and adverse reactions Description No Known Drug Allergies Medications Active Medications SIG Qnty Indications Order ing Provider Date Mwcveada36ro Tablets Take 1 Tablet By Mouth Every Day as Directed 90takimi Felix M.D. 05/24/2022 Estradiol0.1mg/GM Cream Use Vaginally 3 Times Per Week 42.5gm Audrey Felix M.D. 05/24/2022 Ropinirole HCL1mg Tablets Take 1 Tablet By Mouth 3 Hours Before Bedtime rehan Felix M.D. 03/10/2022 Atorvastatin Lkaspmp36xg Tablets Take 1 Tab By Mouth Daily 90nando Felix M.D. Enalapril Qjstnfm83vk Tablets Take 1 Tablet By Mouth Every Day Betty Yoon.D. Vital Signs Date Vital Result Comment 06/16/2023 10:01am BP Systolic 122 mmHg BP Diastolic 60 mmHg Heart Rate 61 /min Height 63 inches 5'3 Weight 173.12 lb BMI (Body Mass Index) 30.7 kg/m2 Results Test Acquired Date Facility Test Result H/L Range Note Comprehensive Metabolic Panl 06/07/2023 [facility] Reference Lab Glucose 105 mg/dL High [...] 75 ML/MIN/1. 73M2 1 Lipid Panel 06/07/2023 [facility] Reference Lab Cholesterol, Total 171 mg/dL (<200) Triglyceride 110 mg/dL (<150) HDL Chol 53 mg/dL (>39) LDL Cholesterol , Calculated 96 mg/dL (0-130) Non HDL Cholesterol (Calc) 118 mg/dL (<160) Complete Abc With Diff 06/07/2023 [facility] Reference Lab WBC 5.9 K/MM3 (4.0-11. [...] ) Lymph # 2.1 K/MM3 (0.8-3.1 ) [place]# 0.4 K/MM3 (0.4-0.9 ) Eo # 0.3 K/MM3 (0.0-0.4 ) Baso # 0.1 K/MM3 (0.0-0.1 ) Abs. Imm Gran 0.0 K/MM3 Neut 51.8 % (44-76) Lymph 35.9 % (15-43) Monocyte 6.4 % (4.5-10. 5) Eo 4.2 % (0-6) Baso 1.4 % (0-2) Imm Gran 0.3 % Lipid Panel 05/31/2022 [facility] Cholesterol, Total 159 mg/dL (<200) Triglyceride 108 mg/dL (<150) HDL Chol 53 mg/dL (>39) LDL Cholesterol , Calculated 84 mg/dL (0-130) Non HDL Cholesterol (Calc) 106 mg/dL (<160) Lipid Panel 02/02/2022 [facility] Reference Lab Cholesterol, Total 254 mg/dL [...] to Dr Reason for Referral Status Appt Rafiq Cummings MD [facility] FOLLOW UP Closed [address] [place] [address] [phone] Rafiq Schwartz MD Closed [address] [place] [address] [phone]
== END 2025-02-27 10:43 | disposition home or self-care (01) ==
LOC: HO.HMCC 09:50
PROVIDERS: PCP Internal Medicine; Visit Provider Internal Medicine
DX: I10 Essential (primary) hypertension (principal); E78.5 Hyperlipidemia, unspecified; E55.9 Vitamin D deficiency, unspecified; R60.9 Edema, unspecified; I87.8 Other specified disorders of veins

== ENCOUNTER → 2025-02-27 09:49 | Outpatient (BNVA) | payer MEDICARE, SELFPAY | PROVIDERS: PCP Internal Medicine; Visit Provider Internal Medicine | DX: I10 Essential (primary) hypertension (principal); I87.8 Other specified disorders of veins; E78.5 Hyperlipidemia, unspecified; E55.9 Vitamin D deficiency, unspecified; R60.9 Edema, unspecified | CPT/HCPCS: 96127; 99212 ==